=== PATIENT | female | born 2000 | race Caucasian/White ===

== ENCOUNTER → 2020-12-09 12:10 | Outpatient (CLI) | payer OTHER, MEDICAID, SELFPAY ==
[2020-12-09 13:36] LABS: COVID19 -Nasal RAPID Negative (Negative)
== END ==
PROVIDERS: Family Provider Pediatrics; Visit Provider Nurse Practitioner
DX: Z20.822 Contact with and (suspected) exposure to COVID-19 (principal)
CPT/HCPCS: 87635; C9803

== ENCOUNTER 2020-12-12 07:43 | Day surgery (SDC) | payer OTHER, MEDICAID, SELFPAY ==
[2020-12-07 09:46] VITALS: BMI 20.5
[2020-12-12] VITALS (16 sets, daily range): BP systolic 109–129; BP diastolic 70–90; PULSE 72–99; RESP 12–16; TEMP 36.7–37.7; O2SAT 93–100; BMI 20.5
[2020-12-12] MEDS: GABAPENTIN 300 MG CAPSULE PO (08:43)
[2020-12-12] MEDS: ACETAMINOPHEN 325 MG TABLET 975 MG PO (08:44)
[2020-12-12] MEDS: SCOPOLAMINE 1 PATCH TOP (08:44)
[2020-12-12] MEDS: LACTATED RINGERS 1,000 ML 42 ML IV ×2 (09:04→11:29)
--- NOTE | 2020-12-12 09:36 | PM.PREOP ---
Pre-operative Note COVID-19 COVID-19 status: Negative Result date/Date tested (Pos, Neg/Pending): 12/09/20 Interval Note History & Physical reviewed/Exam performed by Physician: Yes Changes to H&P: No
--- NOTE | 2020-12-12 09:58 | PM.HP.1 ---
History of Present Illness History of Present Illness Date Patient Seen: 12/12/20 Time Patient Seen: 09:59 Chief complaint: SDC Narrative: The patient is a 20-year-old woman who suffered a left knee injury while climbing. Her MRI has shown a an ACL rupture. She has been regained range of motion after physical therapy. She presents today for ACL reconstruction with a quadriceps autograft. This is an interval history and physical the patient is a healthy young woman and denies any new medical findings since my history and physical that was performed in October. Patient History Medical History Depression Rupture of anterior cruciate ligament of left knee Family & Social History Social History: household members family Tobacco & Substance use: Smoking Status Never smoker alcohol intake never Substance Use Type marijuana Meds Home Medications and Allergies Allergies Allergy/AdvReac Type Severity Reaction Status Date / Time No Known Drug Allergies Allergy Verified 12/12/20 08:15 Review of Systems Review of Systems Narrative: The patient reports she is in her normal state of health. She has no constitutional, cardiac, pulmonary, gastrointestinal, neurologic, dermatologic or musculoskeletal complaints other than those noted in the history and physical previously performed in October. Exam Vital Signs (past 8 hours): - 12/12/20 08:27 Temperature 98.1 F Pulse Rate 72 Respiratory Rate 16 Blood Pressure 115/77 Pulse Oximetry 100 Oxygen Delivery Method Room Air Narrative Exam Narrative: Well-developed well-nourished young woman. HEENT examination normocephalic atraumatic. Chest clear to auscultation. Cardiac exam regular rate and rhythm. Abdomen soft nontender with normal tunnel bowel sounds no palpable masses. Examination noted for anterior laxity on Elvia's and pivot shift testing. Assessment & Plan Assessment & Plan narrative: The patient has an ACL rupture of her left knee. She is small in stature and therefore we will reconstruct this using a quadriceps autograft. The risks benefits and alternatives of surgery have been discussed with her at her history and physical appointment in October and they have been reviewed today. Risks discussed included but were not limited to: Failure to improve, re-rupture, stiffness, infection, nerve damage, deep venous thrombosis, pulmonary embolism, stroke, myocardial infarction, permanent paralysis and . COVID-19 COVID-19 status: Negative Result date/Date tested (Pos, Neg/Pending): 12/09/20 Time Spent With Patient Time with patient: less than 30 minutes Critical Care time: I spent a total of [] minutes of critical care time on this patient's care today; this time is exclusive of procedural time.
[2020-12-12] MEDS: CEFAZOLIN 1 GM VIAL IV (10:30)
--- NOTE | 2020-12-12 10:50 | SUR.OPER ---
Supine on padded OR bed, head on pillow, arms secured on padded arm boards at <90 degrees abduction, legs uncrossed, safety belt at abdomen, lateral arthroscopy brace placed by Dr. Loza at left thigh.
[2020-12-12] MEDS: BUPIVACAINE 0.5% (PF) VIAL 30 ML INJ (11:05)
--- NOTE | 2020-12-12 12:31 | PM.OP.1 ---
Operative Date/Time/Diagnoses Date of procedure: 12/12/20 Time of procedure: 12:31 Pre-op diagnosis: Left knee anterior cruciate ligament rupture Post-op diagnosis: other (Also left lateral meniscus tear) Procedure & Clinicians Procedure: Left knee anterior cruciate ligament reconstruction with quadriceps autograft Same procedure as scheduled: Yes Indications: The patient is an active 20-year-old woman who injured her right leg while climbing. She wishes to return to active sports and has requested ACL reconstruction after discussion the risks benefits and alternatives as documented in my history and physical note. Surgeon: Salomon Loza Airborne Sensor Specialist: Marisa Sears Click Yes if Unassisted: No Anesthesia Type: General and Local Operative Notes Findings: 1. Normal suprapatellar pouch 2. Normal patellofemoral joint 3. Normal medial and lateral gutters 4. Normal medial compartment 5. Intercondylar notch notable for complete rupture of the anterior cruciate ligament with positive ?empty wall sign?. The PCL appeared to be intact. 6. Lateral compartment notable for vertical partial-thickness posterior horn lateral meniscus tear posterior to the popliteus hiatus. This was left in site to as these are known to be stable tears. 7. Posterolateral compartment notable for some capsular scarring from likely posterolateral corner injury 8. Posterior medial compartment normal 9. Exam under anesthesia notable for grade 1 medial collateral ligament laxity, grade 3 lock min and grade 2 pivot shift. PCL and LCL as well as posterolateral corner appeared to be intact on exam. Closure Type: primary Specimen(s): none sent Prosthetic devices, grafts, tissues, transplants, or devices: Arthrex femoral tight rope button with a tibial tight rope 14 mm button backed up by a 38 mm 3.5 mm cortical screw. Applied: implant(s) Estimated Blood Loss (mL): 50 Blood products transfused: none Tourniquet time (min): 63 Procedure in detail: The patient was seen in the preoperative area where she confirmed her left knee was the operative site this was marked with my initials. She received preoperative antibiotics. She was taken to the operating room placed on the operating room table in a supine position where she underwent the induction with spinal anesthetic. A tourniquet was placed about her proximal left thigh. Her left leg was examined under anesthesia with result given above. A multimedia teacher-out was performed. The left leg was prepared from the toes the tourniquet with ChloraPrep in the usual fashion draped through sterile drapes. The knee was entered through a superomedial portal with the pump cannula. The knee was distended with arthroscopic fluid and a lateral portal created for the arthroscope. Diagnostic arthroscopy ensued with result given above. During diagnostic arthroscopy a medial portal was created for the probe and other tools. After confirming the diagnosis of ACL rupture and confirming there was no meniscal injury that required repair, the arthroscopic equipment was temporarily withdrawn. The leg was elevated and exsanguinated with an Esmarch bandage the tourniquet inflated to 250 mmHg. An approximately 7 cm incision was created just above the superior patellar pole. This was carried to the quadriceps tendon. A 9 mm wide quadriceps tendon graft was harvested. This was taken to the back table for preparation into a graft by my assistant executive housekeeper. I returned my attention to the knee. Arthroscope was reinserted and the ACL remnant debrided. The arthroscope was then placed in the medial portal and the retrograde Reamer guide was placed through the lateral portal and used to place the retrograde Reamer in the center of the ACL footprint on the femur. A 10 mm diameter by 20 mm deep socket was reamed. A passing suture was then placed and brought out through the lateral portal. The arthroscope was then reinserted through the lateral portal as well. A tibial guide was placed the medial portal and used to create a tibial tunnel in the center of the tibial insertion of the ACL. The passing suture was then brought out through the tibia and used to deliver the graft into the femoral socket. The ?tight rope? device was used to draw the graft into the femoral socket. The position of the graft was confirmed as being satisfactory. There was no sign of impingement. A tibial button was then applied and the tibial tight rope mechanism was tightened. It did not appear to be quite as strongly attached as I would like so I backed this up with a screw and post distally. This provided excellent fixation. All wounds were irrigated. The graft harvest wound had been closed with a running 0 Vicryl in the tendon immediately after harvest of the graft. The subcutaneous layers of the graft harvest wound in the tibial tunnel wound was closed with 3-0 Vicryl. 4-0 Monocryl was used for the subcutaneous closure of the smaller wounds and a running of 2-0 barbed student suture was used for the graft harvest wound. Steri-Strips, sterile 4x4s, cast padding and an Dre wrap were applied the patient was transported to the recovery room in good condition having tolerated the procedure well. Complications: none Post-operative Condition: stable Disposition: PACU Plan for aftercare: The patient will be discharged today. She will be allowed to weightbear as tolerated but should use crutches for comfort until it is uncomfortable to bear weight. She will be attending physical therapy on a standard ACL reconstruction protocol.
[2020-12-12] MEDS: fentaNYL 100 MCG/2 ML INJ IV ×2 (12:56→13:19)
--- NOTE | 2020-12-12 13:01 | SUR.PHASEI ---
received to PACU after general anesthesia. Airway patent, self maintained. Report from TIFFANI Rangel and Dr Dacosta.
[2020-12-12] MEDS: OXYCODONE IR 5 MG TABLET PO ×2 (13:14→13:50)
[2020-12-12] MEDS: hydrOXYzine pamoate 25 MG CAPSULE PO (13:14)
[2020-12-12] MEDS: HYDROMORPHONE 2 MG INJ IV (13:40)
[2020-12-12] MEDS: ONDANSETRON 4 MG/2 ML INJ IV (14:30)
--- NOTE | 2020-12-12 15:22 | SUR.PHASEII ---
1510. Was feeling fairly ok until getting dressed and getting in wheelchair. Then crying with pain and nausea. States would rather go home than be in the hospital. Assisted into car with mom helping. Said thank you and have a nice day
== END 2020-12-12 15:15 | disposition home or self-care (01) ==
PROVIDERS: Family Provider Pediatrics; Referring Provider Orthopaedic Surgery; Visit Provider Orthopaedic Surgery
PROC: (CPT 29888; principal; 2020-12-12 10:15)
DX: S83.512A Sprain of anterior cruciate ligament of left knee, initial encounter (principal); S83.282A Other tear of lateral meniscus, current injury, left knee, initial encounter; S89.92XA Unspecified injury of left lower leg, initial encounter; S83.412A Sprain of medial collateral ligament of left knee, initial encounter; F32.9 Major depressive disorder, single episode, unspecified; X58.XXXA Exposure to other specified factors, initial encounter; W17.89XA Other fall from one level to another, initial encounter; Y93.39 Activity, other involving climbing, rappelling and jumping off
CPT/HCPCS: 29888; J0690; J1100; J1170; J2250; J2405; J2704; J3010